=== PATIENT | female | born 1990 | race Two or more races ===

== ENCOUNTER 2016-11-14 12:37 | Emergency (ER) | payer MEDICAID ==
[~2016-11-14] VITALS: Ht 157.5 cm; Wt 75.0 kg
[2016-11-14 12:43] VITALS: BP 120/80
[2016-11-14] MEDS ORDERED: LIDOCAINE 1%, 20ML ONE (13:37)
[2016-11-14] MEDS ORDERED: BACITRACIN ZINC OINT 500U/GM, 0.9 GM ONE (13:52)
== END 2016-11-14 14:00 | disposition home or self-care (01) ==
LOC: ED 13:54
DX: L60.0 Ingrowing nail (principal)
CPT/HCPCS: 11730

== ENCOUNTER 2020-06-17 17:04 | Emergency (ER) | payer SELFPAY ==
[~2020-06-17] VITALS: Ht 157.5 cm; Wt 77.0 kg
[2020-06-17 17:12] VITALS: BP 139/90
== END 2020-06-17 18:59 | disposition home or self-care (01) ==
LOC: ED 17:24
DX: U07.1 COVID-19 (principal); R06.00 Dyspnea, unspecified; R50.9 Fever, unspecified; R06.02 Shortness of breath
CPT/HCPCS: 71045; 93005; 99283